=== PATIENT | male | born 1960 | race Caucasian/White ===

== ENCOUNTER → 2021-03-07 09:56 | Outpatient (BNVA) | payer SELFPAY | PROVIDERS: Visit Provider Dermatology | DX: Z01.89 Encounter for other specified special examinations (principal) ==

== ENCOUNTER → 2021-06-06 09:08 | Outpatient (BNVA) | payer SELFPAY | PROVIDERS: Visit Provider Family Medicine Adult Medicine | DX: Z00.00 Encounter for general adult medical examination without abnormal findings (principal) ==

== ENCOUNTER → 2021-08-25 15:34 | Outpatient (BNVA) | payer SELFPAY | PROVIDERS: PCP Family Medicine Adult Medicine; Visit Provider Nurse Practitioner Family | DX: Z20.822 Contact with and (suspected) exposure to COVID-19 (principal) | CPT/HCPCS: 87635 ==

== ENCOUNTER 2021-08-30 11:03 | Outpatient (CLI) | payer OTHER, SELFPAY ==
[2021-08-30 11:10] VITALS: BP 135/77; PULSE 82; RESP 20; TEMP 36.2; O2SAT 97
[2021-08-30 11:59] VITALS: BMI 39.1
[2021-08-30 12:10] VITALS: BP 141/85; PULSE 78; RESP 19; TEMP 37.1; O2SAT 97
[2021-08-30 13:10] VITALS: BP 164/96; PULSE 76; RESP 20; TEMP 37; O2SAT 98
== END 2021-08-30 11:04 | disposition home or self-care (01) ==
LOC: OPS 11:06
PROVIDERS: Visit Provider Nurse Practitioner Family
DX: U07.1 COVID-19 (principal)
CPT/HCPCS: 96365